=== PATIENT | female | born 2000 | race Two or more races ===

== ENCOUNTER 2022-10-15 05:44 | Emergency (ER) | payer OTHER ==
[~2022-10-15] VITALS: Ht 149.9 cm; Wt 68.0 kg
[2022-10-15 06:10] VITALS: BP 125/74
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
[2022-10-15] MEDS ORDERED: LIDOCAINE HCL/PF 1% 30 ML SDV ONE (06:24)
[2022-10-15] MEDS ORDERED: TDAP [DIPH/PERTUSSIS/TET] 0.5 ML VIAL IM ONE ×2 (06:25→06:30)
--- NOTE | 2022-10-15 06:28 | NUR ---
EMT AT PT'S BEDSIDE TO CLEAN LAC TO PT'S LIP
[2022-10-15] MEDS ORDERED: LIDOCAINE HCL/PF 1% 30 ML VIAL TP ONE (06:30)
--- NOTE | 2022-10-15 06:42 | NUR ---
URINE COLLECTED AND SENT TO LAB
--- NOTE | 2022-10-15 06:42 | NUR ---
DR IVETH CALVIN AT PT'S BEDSIDE FOR SUTURES TO UPPER LIP
--- NOTE | 2022-10-15 07:40 | NUR ---
Patient discharged to home in stable condition. Written and verbal after care instructions given. Patient verbalizes understanding of instruction.
== END 2022-10-15 07:40 | disposition home or self-care (01) ==
LOC: ER 05:53
DX: S01.511A Laceration without foreign body of lip, initial encounter (principal); V89.2XXA Person injured in unspecified motor-vehicle accident, traffic, initial encounter; Y93.89 Activity, other specified; Y92.89 Other specified places as the place of occurrence of the external cause; Y99.8 Other external cause status
CPT/HCPCS: 99283; 12011; 90471; 90715; 84703; J3490 ×2